=== PATIENT | male | born 1990 | race Two or more races ===

== ENCOUNTER 2017-10-26 13:04 | Emergency (ER) | payer OTHER ==
[2017-10-26] MEDS ORDERED: KETOROLAC 30 MG/1 ML SDV ONE (13:46)
[2017-10-26] MEDS ORDERED: COLCHICINE 0.6 MG CAP/TAB ONE (16:57)
[2017-10-27 06:56] VITALS: BP 128/67
--- NOTE | 2017-10-27 11:21 | CPEKG ---
Heart Rate: 71 RR Interval: 845 P-R Interval: 156 QRSD Interval: 110 QT Interval: 372 QTC Interval: 405 P [place]: 54 QRS [place]: 89 T Wave [place]: 42 EKG Severity - ABNORMAL ECG - EKG Impression: SINUS RHYTHM EKG Impression: NONSPECIFIC INTRAVENTRICULAR CONDUCTION DELAY Electronically Signed By: Herbert Garcia 27-Oct-2017 20:40:36
[2017-10-28 09:55] LABS: PLATELET COUNT 305 10^3/uL (150-400)
--- NOTE | 2017-10-29 00:37 | EDPHY ---
H & P Stated Complaint: CHEST PAIN SINCE 9 A.M. Source: Patient Exam Limitations: No limitations - Personal History Current Tetanus/Diphtheria Vaccine: Unsure Current Tetanus Diphtheria and Acellular Pertussis (TDAP): Unsure - Medical/Surgical History Hx Asthma: No Hx Chronic Respiratory Disease: No Hx Diabetes: No Hx Cardiac Disease: No Hx Renal Disease: No Hx Cirrhosis: No Hx Alcoholism: No Hx HIV/AIDS: No Hx Splenectomy or Spleen Trauma: No Time Seen by Provider: 10/26/17 13:05 HPI/ROS: HPI: This is a 27-year-old male who presents with Chief Complaint: Anterior chest pain Location: Anterior chest Quality: Pain Duration: Starting a a.m. This morning Signs and Symptoms: no shortness of breath at rest, no shortness of breath on exertion, no cough, + chest pain, no palpitations, no lower extremity edema, no wheezing, no orthopnea, no paroxysmal nocturnal dyspnea, no fever, no injury/ trauma, no hemoptysis, no carpal pedal spasms Timing: Acute Severity: Moderate to severe Context: Patient reports that she woke up around 8:00 a.m. This morning with anterior chest discomfort that was described as dull aching and pressure like that is nonradiating in nature. He reports that it is better when he lies flat on his back and worsens when he sits up. The chest pain occurred while driving to work this morning. He denies feeling anxious or being worried about anything. He travel to [facility] approximately 2 weeks ago. He denies any lower extremity edema, shortness of breath. His father was diagnosed with an [place] in his 50s and had a CABG x2 performed. He went to [facility] and was found to have EKG changes consistent with pericarditis so sent to the emergency room for further evaluation. He denies any recent upper respiratory symptoms or viral syndrome. Modifying Factors: None Comment: ROS: see HPI Constitutional: No fever, no chills, no weight loss Eyes: No blurred vision Respiratory: No shortness of breath, no cough Cardiovascular: No chest pain, no palpitations, no lower extremity edema Gastrointestinal: No nausea, no vomiting, no diarrhea Genitourinary: No dysuria Extremities: No myalgias Neurologic: No weakness, no numbness Skin: No rashes Hematologic: No bruising, no bleeding MEDICAL/SURGICAL/SOCIAL HISTORY: Medical history: Generally healthy. Does not take any regular medications. Surgical history: Denies Social history: Employed. Nonsmoker. CONSTITUTIONAL: Extremely polite and cooperative but slightly anxious adult male, awake and alert, no obvious distress HEENT: Atraumatic and normocephalic, PERRL, EOMI. Nares patent; no rhinorrhea; no nasal mucosal edema. Tympanic membranes clear. Oropharynx clear, no exudate and moist pink mucosa. Airway patent. No lymphadenopathy. No meningismus. Cardiovascular: Normal S1/S2, regular rate, regular rhythm, without murmur rub or gallop. PULMONARY/CHEST: Symmetrical and nontender. Clear to auscultation bilaterally. Good air movement. No accessory muscle usage. ABDOMEN: Soft, nondistended, nontender, no rebound, no guarding, no peritoneal signs, no masses or organomegaly. No CVAT. EXTREMITIES: 2/2 pulses, strength 5/5, no deformities, no clubbing, no cyanosis or edema. NEUROLOGICAL: no focal neuro deficits. GCS 15. SKIN: Warm and dry, no erythema. no rash. Good capillary refill. (Jay,Terra) Constitutional: Initial Vital Signs Temperature (C) 37.3 C 10/26/17 13:04 Heart Rate 84 10/26/17 13:04 Respiratory Rate 16 10/26/17 13:04 Blood Pressure 164/89 H 10/26/17 13:04 O2 Sat (%) 98 10/26/17 13:04 O2 Delivery Mode Room Air Medical Decision Making ED Course/Re-evaluation: EKG shows either early repolarization or nonspecific changes related to pericarditis. Reviewed with attending. Chest x-ray laboratory studies ordered Given IV Toradol with adverse reaction and then IV Benadryl 50 mg given. Labs reviewed. No signs of leukocytosis/anemia/platelet dysfunction/GLO/ elevated LFTs/electrolyte imbalance/ESR/CRP/pancreatitis/VTE. Patient given colchicine 0.6 mg prior to discharge. Chest x-ray my read shows no opacity, no effusion, no widened mediastinum, no pneumothorax. Discussed case with attending and is felt that echocardiogram is not emergently needed to be performed in the emergency room. Patient will be started on ibuprofen every 8 hr as well as colchicine 0.6 mg twice a day for minimal 7 days with Cardiology follow-up. This patient was seen under the supervision of my secondary supervising physician. I evaluated care for this patient independently. Discussed this patient with Dr. Quintana who did not see the patient. This chart was completed 2 days after the patient was seen in the emergency room as the hospital sustained a down time in the electronic medical records. Please note that the chart may be incomplete. (Yamila Thompson) Differential Diagnosis: Chest pain including but not limited to myocardial ischemia, pulmonary embolus, chest wall pain, pleural inflammation and pulmonary infectious causes. (Yamila Thompson) Other Provider: This note was created during prolonged hospital-wide EHR downtime and may be incomplete or contain inaccuracies to due circumstance limitations. (Angel Luis Quintana) - Data Points Laboratory Results: Laboratory Results 10/26/17 13:50 10/26/17 13:50 Point of Care Test Results: Chemistry 10/26/17 15:52 POC Troponin I 0.00 ng/mL ng/mL (0.00-0.08) Departure - Departure Disposition: Home, Routine, Self-Care Clinical Impression: Pericarditis Qualifiers: Pericarditis type: idiopathic Chronicity: acute Qualified Code(s): I30.0 - Acute nonspecific idiopathic pericarditis Condition: Good Instructions: Acute Pericarditis (ED) Additional Instructions: Please take Ibuprofen 600 mg with food every 8 hr x 7 days. Take colchicine 0.6 mg twice daily x 7 days. Follow-up with Cardiology in 5-7 days. Follow-Up: Please follow-up as noted above. Follow-up sooner if your condition worsens or if you develop any new problems. Call as soon as possible for an appointment. Be clear when you call for an appointment that this is an Emergency Department follow-up. Contact the Emergency Department if you have trouble arranging follow-up care. Our referrals are not based on your insurance network. When time allows, contact your insurance carrier to verify the referral physician is in your plan. If not, get a referral for an in-network control operators supervisor. Return to the ER immediately if you experience new, continued or worsened chest pain, chest pain that radiates, chest pain accompanied by exertion or associated with shortness of breath, sweating, nausea, dizziness, back pain, or any other symptoms that concern you. Referrals: Alexa Ann MD [Medical Doctor] - 5-7 days, if not improved
== END 2017-10-26 17:15 | disposition home or self-care (01) ==
DX: I30.0 Acute nonspecific idiopathic pericarditis (principal)
CPT/HCPCS: 84484-PO; J1200; J1885